=== PATIENT | female | born 1945 | race Caucasian/White ===

== ENCOUNTER → 2024-12-19 | Outpatient (CLI) | payer MEDICARE, BC, SELFPAY ==
--- NOTE | 2024-12-19 | XR_ITS ---
Examination: Bone densitometry Date and time of exam:December 2024 at 1308 hrs. Indications: Menopause age 45, and yesterday, mother, hip fracture 1 mm, personal history osteoporosis Technique: Lumbar spine and hip total bone mineralization values of an calculated. Peak reference and age match control results have been displayed. Findings: Lumbar spine total bone mineralization is1.030 gm/cm2. This is 0.2 standard deviations below peak reference. This is 2.6 standard deviations above age-matched controls. Hip total bone mineralization is 0.676gm/cm2 This is 2.2 standard deviations below peak reference. This is 0.1 standard deviations below age-matched controls Impression: There is normal mineralization based on lumbar spine measurements. There is osteoporosis based on hip measurements Lumbar mineralization is decreased 0.3% compared with 06 18 2022 Hip mineralization is decreased 2.8% compared with June 18 2022
--- NOTE | 2024-12-19 13:15 | XR_ITS ---
Examination: Screening digital mammography, bilateral Computer aided detection 3-D breast Tomosynthesis, bilateral Date and time of exam: 12/19/2024, 12:41 PM Comparisons: May 2022, August 2023 Indications: Screening Technique: Nonmagnified MLO, CC views of the breasts to been obtained, reconstructed from 3-D Tomosynthesis images. R2 computer aided detection program utilized for evaluation of suspicious masses and/or abnormal calcifications. 3-D Tomosynthesis images obtained. Technologist: Findings: There are scattered areas of fibroglandular density. No evidence of abnormal masses or suspicious calcifications. Stable right postbiopsy marker clip. Impression: BI-RADS category 2: Benign findings Recommend 1 year follow-up mammogram
== END | disposition home or self-care (01) ==
PROVIDERS: PCP Family Medicine; Referring Provider Physician Assistant; Visit Provider Physician Assistant
DX: Z12.31 Encounter for screening mammogram for malignant neoplasm of breast (principal); R92.323 Mammographic fibroglandular density, bilateral breasts; M81.8 Other osteoporosis without current pathological fracture
CPT/HCPCS: 77063; 77067; 77080

== ENCOUNTER → 2025-01-15 | Outpatient (CLI) | payer MEDICARE, BC, SELFPAY ==
[2025-01-15 13:25] LABS: Glucose Estimated Average 137 mg/dL (80-131); Hemoglobin A1C 6.4 % Hgb (4.8-6.0)
[2025-01-15 13:34] LABS: Alanine Aminotransferase 19 U/L (10-49); Albumin, Serum 4.1 gm/dL (3.4-4.8); Albumin/Globulin Ratio 1.5 (1.2-2.2); Alkaline Phosphatase 66 U/L (46-116); Anion Gap 7 (7-16); Aspartate Amino Transferase 23 U/L (0-34); BUN/Creatinine Ratio 22 Ratio (12-20); Bilirubin,Total 0.6 mg/dL (0.3-1.2); Blood Urea Nitrogen 13 mg/dL (9-23); Calcium 9.5 mg/dL (8.3-10.6); Calcium (Corrected) 9.5 mg/dL (8.5-10.1); Carbon Dioxide 27.2 mMol/L (20.0-31.0); Cardiac Risk Estimate 2.4 RATIO (3.7-5.6); Chloride 107 mMol/L (98-107); Cholesterol 161 mg/dL (132-200); Creatinine (Component) 0.6 mg/dL (0.6-1.3); Globulin 2.7 gm/dL (2.3-3.5); Glucose 119 mg/dL (74-106); HDL Cholesterol 66 mg/dL (40-60); LDL Cholesterol,Calculated 85 mg/dL (0-130); Osmolality,Calculated 282 (275-295); Potassium 4.4 mMol/L (3.4-5.1); Sodium 141 mMol/L (136-145); Total Protein 6.8 gm/dL (5.7-8.2); Triglycerides 49 mg/dL (30-150); eGFR > 60 See Note
== END | disposition home or self-care (01) ==
LOC: COPL 11:46
PROVIDERS: PCP Physician Assistant; Referring Provider Physician Assistant; Visit Provider Physician Assistant
DX: E78.5 Hyperlipidemia, unspecified (principal); R73.01 Impaired fasting glucose
CPT/HCPCS: 36415; 80053; 80061; 83036

== ENCOUNTER → 2025-05-30 | Outpatient (CLI) | payer MEDICARE, BC, SELFPAY ==
--- NOTE | 2025-05-30 09:42 | XR_ITS ---
Examination: CTA abdomen, with intravenous contrast. CTA pelvis, with intravenous contrast. 2-D sagittal and coronal reconstructions. 3-D reconstructions. Date and time of exam: May 30, 2025 1038 hours INDICATIONS: Abdominal pain 14 years, splenic artery aneurysms 13 mm, 7 mm, 10 mm February 20, 2019 CTDI vol (mgy) 15.1 DLP (MGycm) 315 Technique: Multiple CTA images, 2.0 mm slice thickness, obtained, abdomen, pelvis, with the high-resolution 64 slice scanner. 80 cc Isovue-370 is administered intravenously. Sagittal and coronal 2-D reconstructions are obtained. 3-D reconstructions, angiographic images are obtained. 3-D postprocessing, including vascular maximum intensity projections. Low dose protocols were performed. One or more of the following dose reduction techniques were used; automated exposure control, adjustment of the mA and/or KV according to patient size, use of iterative reconstruction technique. Findings: No liver or splenic lesions Stable 13 mm, 7 mm, 7 mm splenic artery aneurysms No splenic infarct No gallstones No bowel obstruction Abdominal aorta is not enlarged although it is ectatic Abundant stool in the cecum No pericecal inflammatory change Urinary bladder intact IMPRESSION: Stable splenic artery aneurysms
[2025-05-30 10:25] LABS: Blood Urea Nitrogen 12 mg/dL (9-23); Creatinine (Component) 0.6 mg/dL (0.6-1.3); eGFR > 60 See Note
== END | disposition home or self-care (01) ==
LOC: CCTX 09:13 → COPL 09:27
PROVIDERS: PCP Family Medicine; Referring Provider Surgery Vascular Surgery; Visit Provider Radiology Diagnostic Radiology
DX: I72.8 Aneurysm of other specified arteries (principal)
CPT/HCPCS: 36415; 74174; 82565; 84520; A4649; Q9967

== ENCOUNTER 2025-06-02 16:29 | Emergency (ER) | payer MEDICARE, BC, SELFPAY ==
[2025-06-02 16:31] VITALS: BMI 23.2
[2025-06-02 17:24] VITALS: BP 177/75; PULSE 70; RESP 18; TEMP 36.6; O2SAT 95
--- NOTE | 2025-06-02 18:09 | PD.EDNECK ---
ED Neck Injury Pain RME/HPI General Chief Complaint: Neck Pain/Injury Stated Complaint: NECK PAIN RADIATING TO HEADACHE Time Seen by Provider: 06/02/25 17:41 Source: patient and family Arrival date/time: 06/02/25 16:29 Mode of arrival: ambulatory Limitations: no limitations RME / HPI RME / HPI Narrative: Patient is an 80-year-old female with medical history notable for scoliosis, chronic back pain, this in Emergency Department with concerns for neck pain and stiffness after having had a CT scan approximately 3 days ago. Patient denies any fevers chills nausea vomiting chest pain palpitations abdominal pain dysuria diarrhea falls trauma overexertion or rashes. Patient states that after the CT scan and laying on the flat board with her history of scoliosis caused her to have worsening back pain. She has been taking her pain medication at home however it has not helped. The last pain medication she took was at 11 AM. Denies any weakness, difficulty breathing Related Data Home Medications ?Medication ?Instructions ?Recorded ?Confirmed Alendronate Sodium * (FOSAMAX *) 70 mg PO QWEEK ##0 08/05/13 CALCIUM CITRATE/VITAMIN D3 1 ea PO ##0 08/05/13 (CITRACAL + D MAXIMUM CAPLET) CYANOCOBALAMIN (VITAMIN B-12) 1,000 mcg PO DAILY ##0 08/05/13 (B-12) Timolol Maleate/Dorzolam Hcl OPHTH 10 ml OP BID ##0 08/05/13 DROPS * (COSOPT *) HYDROCODONE BIT/ACETAMINOPHEN 1 tab PO Q6HR PRN PAIN #50 tabs 02/01/14 (Vicodin 5/300) Previous Rx's ?Medication ?Instructions ?Recorded naproxen 500 mg tablet 500 mg PO BID PRN pain #20 tabs 05/02/19 Allergies Allergy/AdvReac Type Severity Reaction Status Date / Time Penicillins Allergy Unknown Verified 06/02/25 16:30 ED Exam General Limitations: Present no limitations General appearance: Present alert and in no apparent distress Head Head exam: Present atraumatic, normocephalic and normal inspection Eye Eye exam: Present normal appearance, PERRL and EOMI ENT ENT exam: Present normal exam, normal oropharynx and mucous membranes moist Neck Neck exam: Present normal inspection and full ROM (Limited range of motion to the left and right secondary to pain, tenderness to palpation along the lateral neck muscles on the left than right, no swelling appreciated, no bruits,); Absent lymphadenopathy Chest Chest inspection: Present symmetric chest wall rise Respiratory Respiratory exam: Absent respiratory distress Cardiovascular Cardiovascular exam: Present regular rate and normal rhythm Abdominal Exam Abdominal exam: Absent distention Extremities Exam Extremities exam: Present normal inspection, full ROM and normal capillary refill; Absent tenderness Back Exam Back exam: Present normal inspection (Patient with abnormal curvature of the back, no step-offs or deformities, no midline tenderness to palpation of her entire spine) Neurological Exam Neurological exam: Present alert, oriented X3, CN II-XII intact and normal gait (Ambulating at her baseline); Absent motor sensory deficit Psychiatric Psychiatric exam: Present normal affect and normal mood Skin Skin exam: Present warm and dry Course Quality Measures none Orders Category Date Time Status Lidocaine 5% Patch Med 06/02/25 18:01 Discontinued 1 patch TOP X1 ONE oxyCODONE/APAP 5/325 [Percocet 5/325] Med 06/02/25 18:01 Discontinued 1 tab PO X1 ONE Vital Signs Vital signs: Vital Signs Temperature 97.9 F 06/02/25 17:24 Pulse Rate 70 06/02/25 17:24 Respiratory Rate 18 06/02/25 17:24 Blood Pressure 177/75 H 06/02/25 17:24 Pulse Oximetry (%) 95 06/02/25 17:24 Oxygen Delivery Method Room Air 06/02/25 17:24 Neck Pain MDM Narrative MDM Narrative:: Patient is an 80-year-old female seen emerged from concerns for neck pain. Vital signs and exam as listed. Concern for torticollis, muscle strain, radiculopathy. Patient without any red flags for pain at this time, no difficulty with ambulation no difficulty breathing, no weakness in her upper nor lower extremities, no trauma. Patient without any sick symptoms, not septic. No difficulty breathing, no stridor, no difficulty swallowing less likely [employer] or deep space neck infection. Had joint decision-making conversation with the patient as well as her daughter at bedside. Will proceed with medication for symptom relief, and discharge to home. Advised her to use Epsom salt soaked towels at home and to apply these to her neck to help relieve muscle tension. Also advised her on gentle stretching. Requested that a family member stay with her at home given that I will be providing medication for pain relief here in the emergency department. Patient and patient's daughter agreed that her daughter would stay with her at home, and help her at home and make sure that she does not fall. Patient will be discharged she is hemodynamically stable not in distress Patient data External records reviewed:: [facility] previous records Clinical information provided by:: patient and family Social determinants that could affect healthcare access:: none Patient has the following chronic illnesses:: See MDM How is presenting disease/condition affected by chronic disease/condition?: exacerbated by Evaluation data The following diagnostics were reviewed and interpreted by me:: other (specify) Lab and/or radiology exams considered but not ordered:: None Interpretation Summary: See MDM Medications / Prescriptions Medications or Prescriptions considered but not ordered:: None Medication administrations:: Medication Administration History Discontinued Medications Lidocaine (Lidocaine 5% 1 Patch) 1 patch TOP X1 ONE Stop: 06/02/25 18:02 Oxycodone/Acetaminophen (Oxycodone/Apap 5/325 Tablet) 1 tab PO X1 ONE Stop: 06/02/25 18:02 See above Consultations Consultation(s) initiated? (list below): No Diagnosis Neck Differential Diagnosis: other (See MDM) Most likely diagnosis given after review of the tests above:: Radiculopathy, muscle strain Admission Indicated Admission indicated?: not indicated Admission Request Was there a request for admission?: No Disposition Plan Disposition Plan: Discharge Discharge Attestation Discharge Attestation: The patient and all family members were given an opportunity to ask questions and understood the discharge instructions. Discharge instructions specifically effects, indications for sooner follow up or return to the emergency department, and the expected course of current diagnosis. Patient condition: Stable Discharge Plan Plan Patient Disposition: HOME (Self Care) Prescriptions/Referrals Prescriptions/Med Rec: No Action Timolol Maleate/Dorzolam Hcl OPHTH DROPS * (COSOPT *) 10 ML drops 10 ml OP BID Qty: 0 Alendronate Sodium * (FOSAMAX *) 70 MG tablet 70 mg PO QWEEK Qty: 0 CYANOCOBALAMIN (VITAMIN B-12) (B-12) 1,000 MCG TABLET.ER 1,000 mcg PO DAILY Qty: 0 CALCIUM CITRATE/VITAMIN D3 (CITRACAL + D MAXIMUM CAPLET) 1 EACH tablet 1 ea PO Qty: 0 HYDROCODONE BIT/ACETAMINOPHEN (Vicodin 5/300) 1 TAB tablet 1 tab PO Q6HR PRN (Reason: PAIN) Qty: 50 naproxen 500 mg tablet 500 mg PO BID PRN (Reason: pain) Qty: 20 0RF Referrals: Delmy Campos MD [Primary Care Provider] - In 1 week Problem List Clinical Impression: Radiculopathy, Neck muscle strain Patient/Caregiver Discharge Instructions Education Materials: Relieving Back Pain Additional Instructions: Please use warm compresses soaked in Epsom salts water along the ear lateral neck to help with your symptoms. If your symptoms worsen or you have new symptoms or concern please return to the emergency department immediately for further evaluation. These make sure that someone that can help you at home stays with you to provide support until your symptoms improved. Please follow-up with your primary care doctor within 1 to 2 days Print Language: Lithuanian Stand Alone Forms: Lindsay Award Info., Patient Portal Info Letter
[2025-06-02] MEDS: LIDOCAINE 5% 1 PATCH TOP (18:53)
== END 2025-06-02 19:19 | disposition home or self-care (01) ==
PROVIDERS: Emergency Provider Emergency Medicine; PCP Family Medicine
DX: M54.10 Radiculopathy, site unspecified (principal); S16.1XXA Strain of muscle, fascia and tendon at neck level, initial encounter; X58.XXXA Exposure to other specified factors, initial encounter
CPT/HCPCS: 99283; J3490; A9270

== ENCOUNTER → 2025-08-10 | Outpatient (CLI) | payer MEDICARE, BC, SELFPAY ==
[2025-08-10 11:15] LABS: Glucose Estimated Average 148 mg/dL (80-131); Hemoglobin A1C 6.8 % Hgb (4.8-6.0)
[2025-08-10 11:21] LABS: Alanine Aminotransferase 14 U/L (10-49); Albumin, Serum 4.7 gm/dL (3.4-4.8); Albumin/Globulin Ratio 2.0 (1.2-2.2); Alkaline Phosphatase 80 U/L (46-116); Anion Gap 7 (7-16); Aspartate Amino Transferase 23 U/L (0-34); BUN/Creatinine Ratio 21 Ratio (12-20); Bilirubin,Total 0.6 mg/dL (0.3-1.2); Blood Urea Nitrogen 15 mg/dL (9-23); Calcium 10.0 mg/dL (8.3-10.6); Calcium (Corrected) 10.0 mg/dL (8.5-10.1); Carbon Dioxide 26.7 mMol/L (20.0-31.0); Cardiac Risk Estimate 3.4 RATIO (3.7-5.6); Chloride 109 mMol/L (98-107); Cholesterol 201 mg/dL (132-200); Creatinine (Component) 0.7 mg/dL (0.6-1.3); Globulin 2.3 gm/dL (2.3-3.5); Glucose 157 mg/dL (74-106); HDL Cholesterol 59 mg/dL (40-60); LDL Cholesterol,Calculated 128 mg/dL (0-130); Osmolality,Calculated 288 (275-295); Potassium 4.2 mMol/L (3.4-5.1); Sodium 143 mMol/L (136-145); Total Protein 7.0 gm/dL (5.7-8.2); Triglycerides 69 mg/dL (30-150); eGFR > 60 See Note
== END | disposition home or self-care (01) ==
LOC: COPL 09:47
PROVIDERS: PCP Physician Assistant; Referring Provider Physician Assistant; Visit Provider Physician Assistant
DX: E78.5 Hyperlipidemia, unspecified (principal); R73.01 Impaired fasting glucose
CPT/HCPCS: 36415; 80053; 80061; 83036